=== PATIENT | female | born 1990 | race American Indian/Alaskan Native ===

== ENCOUNTER 2017-03-06 16:30 | Inpatient (IN) | payer MEDICAID ==
[2017-03-06] MEDS ORDERED: LACTATED RINGERS 500 ML IV ONE (17:16)
[2017-03-06 19:33] LABS: Basophils % (Auto) 0.3 % (0.0-1.8); Eosinophils % (Auto) 0.8 % (0.0-4.3); Hemoglobin 11.3 gm/dl (10.1-14.3); Mean Corpuscular HGB Conc 33 % (30-34); Mean Corpuscular Hemoglobin 31 pg (28-32); Mean Corpuscular Volume 92 fl (79-97); Platelet Count 267 K/mm3 (140-440); Red Blood Count 3.71 M/mm3 (3.65-5.03); Red Cell Distribution Width 13.9 % (13.2-15.2); White Blood Count 11.8 K/mm3 (4.5-11.0)
[2017-03-06 20:39] LABS: Bacteria,Urine 1+ /HPF (Negative); Bilirubin,Urine NEG (Negative); Blood,Urine NEG (Negative); Ketones,Urine 20 mg/dL (Negative); Leukocyte Esterase,Urine LG (Negative); Mucus,Urine FEW /HPF; Nitrite,Urine NEG (Negative)
[2017-03-06] MEDS ORDERED: COLACE PO PRN (20:57)
[2017-03-06] MEDS ORDERED: TYLENOL PO PRN (20:57)
--- NOTE | 2017-03-06 21:04 | History and Physical Report ---
History of Present Illness Date of examination: 03/06/17 Date of admission: 03/06/2017 Chief complaint: leakage of fluid History of present illness: 26y/o @ 32+6 weeks presents with leakage of fluid. She denied any painful contractions. The patient has not had care during this . She reports having bleeding in December and assumed that her was not advanced. She has a history of 3 prior deliveries and has had a placement of cerclages during those pregnancies. She has had one child to of SIDs at 1.5y/o. The patient reports having a "heart attack" after one of her deliveries but states she was cleared by cardiology. She is a poor historian. Past History Past Medical History: no pertinent history Past Surgical History: no surgical history Social history: single - Obstetrical History Expected Date of Delivery: 04/26/17 Actual Gestation: 32 Week(s) 6 Day(s) : 8 Para: 5 Hx # Term Pregnancies: 3 Number of Pregnancies: 3 Spontaneous Abortions: 1 Induced : 0 Number of Living Children: 5 (1y/o of SIDS) Medications and Allergies Allergies Allergy/AdvReac Type Severity Reaction Status Date / Time No Known Allergies Allergy Verified 03/06/17 17:16 Home Medications Medication Instructions Recorded Confirmed Last Taken Type Multivitamin with Iron 1 each PO DAILY #30 tablet 04/02/16 03/07/17 2 Days Ago Rx [Multivitamins with Iron] Active Meds: Active Medications Acetaminophen (Tylenol) 650 mg PO Q4H PRN PRN Reason: Pain MILD(1-3)/Fever >100.5/SNEED Amoxicillin (Trimox) 250 mg PO Q8HR MATTHEW PRN Reason: Protocol Stop: 03/13/17 20:58 Betamethasone Acet/Betameth SodPhos (Celestone Soluspan) 12 mg IM Q24HR MATTHEW Stop: 03/07/17 10:01 Docusate Sodium (Colace) 100 mg PO Q12H PRN PRN Reason: Constipation Erythromycin (Richard-Tab) 250 mg PO Q8HR MATTHEW PRN Reason: Protocol Stop: 03/13/17 20:58 Ampicillin Sodium (Polycillin/Ns 2 Gm/100 Ml) 2 gm in 100 mls @ 100 mls/hr IV Q6HR MATTHEW PRN Reason: Protocol Stop: 03/08/17 12:59 Erythromycin Lactobionate 250 (mg/ Sodium Chloride) 100 mls @ 100 mls/hr IV Q6HR MATTHEW PRN Reason: Protocol Stop: 03/08/17 12:59 Lactated Ringer's (Lactated Ringers) 1,000 mls @ 125 mls/hr IV DIRECT MATTHEW Multivitamins/Iron/Calcium ( Vitamin) 1 each PO QDAY MATTHEW Review of Systems All systems: negative Genitourinary: leakage of fluid - Vital Signs Vital signs: Vital Signs Temp Resp Pulse Ox 98.7 F 16 99 03/06/17 17:00 03/06/17 17:00 03/06/17 17:00 Temp Pulse Resp BP Pulse Ox 98.7 F 108 H 16 99/65 82 L 03/06/17 17:00 03/06/17 21:00 03/06/17 17:00 03/06/17 17:35 03/06/17 21:00 - Physical Exam Breasts: Positive: deferred Cardiovascular: Regular rate Lungs: Positive: Clear to auscultation Abdomen: Positive: normal appearance, soft - Obstetrical Cervical Dilatation: 4 (per nursing report) Results Result Diagrams: 03/06/17 19:26 Abnormal lab results 03/06/17 03/06/17 Range/Units 19:26 20:05 WBC 11.8 H (4.5-11.0) K/mm3 Seg Neutrophils # 8.2 H (1.8-7.7) K/mm3 Urine WBC (Auto) 142.0 H (0.0-6.0) /HPF U Epithel Cells (Auto) 18.0 H (0-13.0) /HPF All other labs normal. Assessment and Plan - Patient Problems (1) Insufficient care Current Visit: Yes Status: Acute Qualifiers: Trimester: T Plan to address problem: initiate steroids and antibiotics expectant management ultrasound consistent with 32+6 weeks vertex presentation (2) premature rupture of membranes Current Visit: Yes Status: Acute Qualifiers: PROM onset of labor timing: P
[2017-03-06] MEDS: CELESTONE SOLUSPAN IM SCH (22:33)
[2017-03-06] MEDS: LACTATED RINGERS 1,000 ML IV SCH (22:34)
[2017-03-06 22:35] LABS: HIV-1 Antigen p24 Non React (Non React); HIVR-1/2 Ab Non React (Non React)
[2017-03-06] MEDS: POLYCILLIN/NS 2 GM/100 ML 2 GM/100 ML BAG IV SCH (22:35)
[2017-03-06] MEDS: ERYTHROMYCIN LACTOBIONATE 250 MG in NACL 0.9% 100 ML IV SCH (23:52)
[2017-03-07 00:21] LABS: Urine Drugs of Abuse Note Disclamer
[2017-03-07] MEDS: POLYCILLIN/NS 2 GM/100 ML 2 GM/100 ML BAG IV SCH ×5 (04:54→23:35)
[2017-03-07] MEDS: ERYTHROMYCIN LACTOBIONATE 250 MG in NACL 0.9% 100 ML IV SCH ×5 (06:04→19:50)
--- NOTE | 2017-03-07 08:01 | Admit Criteria Form ---
Admission Criteria Documentation: OBSTETRIC AND GYNECOLOGIC DISEASE GRG Clinical Indications for Admission to Inpatient Care (Place 'X' for any and all applicable criteria): Hospital admission is needed for appropriate care of the patient because of 1 or more of the following (1)(2)(3): [ ]I. Hemodynamic instability, as indicated by 1 or more of the following (1)( 2)(3)(4)(5): [ ]a) Vital signs or other findings not as expected for chronic patient condition or baseline [ ]b) Instability indicated by 1 or more of the following: [ ]i) Hypotension [ ]ii) Symptomatic tachycardia unresponsive to treatment (eg, analgesia, fluids, sedation as indicated) [ ]iii) Inadequate perfusion indicated by 1 or more of the following: [ ]A. Lactic acidosis (greater than 2 mmol/ L) [ ]B. New abnormal capillary refill ( greater than 3 seconds) [ ]C. Reduced urine output [ ]D. New altered mental status [ ]iv) Orthostatic vital sign changes unresponsive to treatment (eg, fluids) [ ]v) Multiple IV fluid boluses required to maintain adequate blood pressure or perfusion [ ]vi) IV inotropic or vasopressor medication required to maintain adequate blood pressure or perfusion [ ]II. Obstetric infection requiring hospitalization indicated by 1 or more of the following(13)(14): [ ]a) Chorioamnionitis [ ]b) Endometritis (except mild endometritis) [ ]c) Pelvic abscess [ ]d) Peritonitis [ ]e) Septic pelvic thrombophlebitis [ ]III. Amniotic fluid or pulmonary embolism(4)(5)(6) [ ]IV. Suspected peritonitis or ectopic requiring monitoring beyond scope of 24 hours or observation care(7)(8) [ ]V. compromise requiring hospitalization indicated by ALL of the following(9)(10): [ ]a) compromise indicated by 1 or more of the following(11): [ ]i) Abnormal heart rate monitoring [ ]ii) Abnormal contraction stress test [ ]iii) Abnormal biophysical profile [ ]iv) Abnormal Doppler flow in vessels (ie, Doppler velocimetry) (12) [ ]b) Persistence of compromise indicators during evaluation and observation monitoring [ ]. Ovarian hyperstimulation syndrome requiring hospitalization[A] indicated by ALL of the following(15): [ ]a) Recent ovarian stimulation with gonadotropins, or evidence on ultrasound of spontaneous emergence of large number of ovarian follicles [ ]b) Evidence of severe ovarian hyperstimulation syndrome indicated by 1 or more of the following: [ ]i) Abdominal pain unresponsive to oral therapy [ ]ii) Acute respiratory distress syndrome [ ]iii) Electrolyte imbalance ( eg, hyponatremia, hyperkalemia) [ ]iv) Elevated liver enzymes [ ]v) Evidence of thromboembolism [ ]vi) Hemoconcentration (hematocrit greater than 45 % (0.45)) [ ]vii) Inability to maintain oral intake adequate to prevent hemoconcentration [ ]viii) Marked hypotension from baseline (eg, SBP 20 mmHg below patients usual pressure) [ ]ix) Oliguria or anuria [ ]x) Ovarian torsion [ ]xi) Pleural or pericardial effusion on x-ray or echocardiogram [ ]xii) Rapid increase in serum creatinine to greater than 1.2 mg/dL (106 micromoles/L) or creatinine clearance less than 50 mL/min/1.73m2 (0.84 mL/ sec/1.73m2) [ ]xiii) Ruptured ovarian cyst with hemorrhage [ ]xiv) Severe abdominal pain or peritoneal signs [ ]xv) Tense ascites that cannot be managed with paracentesis in outpatient setting [ ]VII.Pelvic infection requiring hospitalization indicated by 1 or more of the following (16): [ ]a) Outpatient treatment has failed or is not appropriate (eg, inpatient monitoring required) [ ]b) Pelvic abscess [ ]c) Surgical emergency cannot be excluded (eg, rigid abdomen) [ ]d) Vomiting precluding outpatient and observation care management VIII. loss complications requiring inpatient medical treatment indicated by 1 or more of the following (4)(7)(9): [ ]a) Fever [ ]b) Peritonitis [ ]c) Sepsis [ ]d) Severe abdominal pain [ ]IX. or patient requiring monitoring for severe heart failure, pulmonary disease, or other comorbid condition (eg, peripartum cardiomyopathy) (4)(17) [X]X. patient with rupture of membranes requiring hospitalization indicated by ANY ONE of the following: [ ]a) Chorioamnionitis, cloudy amniotic fluid, or other evidence of infection [X]b) compromise or other need for monitoring (11) [ ]c) Gestation longer than 23 weeks and ANY ONE of the following: [ ]i) Abnormal (noncephalic) presentation [ ]ii) Inadequate home environment (eg, home too far from hospital, unable to rapidly return to hospital) [ ]d) Temperature greater than 100.4 degrees F (38 degrees C)( oral) [ ]e) Threatened labor requiring monitoring beyond scope (eg, over 24 hours) of observation Care [ ] XI. complications, including severe lacerations, infections, or retained placenta (19) [ ] XII.Uterine bleeding with high-risk features indicated by ANY ONE of the following (4): [ ]a) Active major hemorrhage (eg, hemorrhage) [ ]b) Coagulopathy with active bleeding [ ]c) Gestational trophoblastic disease (eg, molar ) (20 ) [ ]d) (longer than 23 weeks) and ANY ONE of the following: [ ]i) Pain [ ]ii) Placental abruption, known or suspected [ ]iii) Placenta accrete, known or suspected(21) [ ]iv) Placenta previa, known or suspected [ ]v) Vasa previa [ ]e) Severe anemia [ ]XIII. Obstetric or Gynecologic Disease, condition or symptom for which ANY ONE of the following: [ ]a) Emergency and observation care have failed or are not considered appropriate ( Also use General Criteria: Observation Care Criteria as appropriate) [ ]b) Presence of a General Admission Criteria or Pediatric General Admission Criteria The original [facility] content [facility] by [facility] has been revised. The portions of the content which have been revised are identified through the use of italic text or in bold, and [facility] has neither reviewed nor approved the modified material.All other unmodified content is copyright [facility]. Please see references footnoted in the original [facility] edition 2016 Admission Criteria Met: Yes
--- NOTE | 2017-03-07 08:30 | Ultrasound Report ---
COMPLETE OB ULTRASOUND: Gestation: matson Position: cephalic LIZETT = 2.9 cm normal 7-24 oligohydramnios Placenta: fundal,ant-post Placental Grade: 0 Heart Rate: 139 BPM ANATOMY VISUALIZED: Stomach Kidneys Bladder 4 Chamber Heart Heart 3 Vessel Cord The following are not demonstrated due to maternal body habitus or lie: head,spine,cx,CI BPD: 8.2 cm = 33 w 0 d HC: 29.5 cm = 32 w 4 d AC: 28.4 cm = 32 w 3 d FL: 6.35 cm = 32 w 6 d HC/AC Ratio: 1.04 Cephalic Index: 85.0 Estimated Weight: 2012 grams US Gest. Age = 32 w 5 d EDC: 04/26/17
[2017-03-07] MEDS: PRENATAL VITAMIN PO SCH (10:53)
[2017-03-07] MEDS: LACTATED RINGERS 1,000 ML IV SCH (10:59)
[2017-03-07] MEDS: CELESTONE SOLUSPAN IM SCH (22:41)
[2017-03-07] MEDS: AMBIEN PO PRN (23:43)
[2017-03-08] MEDS: ERYTHROMYCIN LACTOBIONATE 250 MG in NACL 0.9% 100 ML IV SCH ×3 (02:24→16:00)
[2017-03-08] MEDS: LACTATED RINGERS 1,000 ML IV SCH ×3 (02:52→23:21)
[2017-03-08] MEDS: POLYCILLIN/NS 2 GM/100 ML 2 GM/100 ML BAG IV SCH ×2 (05:48→11:10)
--- NOTE | 2017-03-08 09:21 | Progress Note ---
Assessment and Plan A: IUP at 33 wks PPROM Advanced cervical dilation Bilateral calf pain No care H/o 3 deliveries and 3 cerclages P: Continue latency antibiotics Bilateral venous dopplers to evaluate for DVT Monitor for signs of chorioamnionitis Closely monitor maternal and status Subjective - Subjective Date of service: 03/08/17 Principal diagnosis: IUP at 33 wks, PPROM, no care Interval history: Overnight no acute events. Pt would like meds for her allergies. C/o bilateral calf pain x 5 days Patient reports: loss of fluid, movement normal, contractions (irregular) , no new complaints, no vaginal bleeding Objective - Vital Signs Vital Signs: Vital Signs - 12hr 03/07/17 03/07/17 03/07/17 22:15 23:45 23:49 Temperature 98.7 F 98.2 F Pulse Rate 80 Pulse Rate [ From Monitor] Respiratory 20 Rate Blood Pressure 89/49 Blood Pressure [Left Arm] O2 Sat by Pulse Oximetry 03/08/17 03/08/17 03/08/17 01:53 03:35 03:38 Temperature 98.1 F Pulse Rate 69 73 Pulse Rate [ From Monitor] Respiratory Rate Blood Pressure 88/51 Blood Pressure [Left Arm] O2 Sat by Pulse 97 Oximetry 03/08/17 03/08/17 03/08/17 03:47 05:05 08:08 Temperature 98.0 F 98.3 F Pulse Rate 85 Pulse Rate [ From Monitor] Respiratory 20 Rate Blood Pressure 105/53 Blood Pressure [Left Arm] O2 Sat by Pulse 100 Oximetry 03/08/17 08:10 Temperature 97.3 F L Pulse Rate Pulse Rate [ 84 From Monitor] Respiratory 18 Rate Blood Pressure Blood Pressure 105/53 [Left Arm] O2 Sat by Pulse 98 Oximetry - Exam Breasts: deferred Cardiovascular: Regular rate Lungs: Clear to auscultation Abdomen: Present: soft (gravid ). Absent: tenderness Uterus: Present: normal (gravid ) FHR: auscultation normal Uterine Contraction Monitor Mode: External Uterine Contraction Pattern: Irregular Uterine Tone Measurement Phase: Resting Uterine Contraction Intensity: Mild Extremities: tenderness (bilateral calf tenderness) - Labs Labs: Abnormal Labs 03/06/17 03/06/17 19:26 20:05 WBC 11.8 H Seg Neutrophils # 8.2 H Urine WBC (Auto) 142.0 H U Epithel Cells (Auto) 18.0 H Laboratory Results - last 24 hr 03/06/17 21:50 RPR Nonreactive
[2017-03-08] MEDS: PRENATAL VITAMIN PO SCH (10:21)
[2017-03-08] MEDS: DEEP SEA NS SCH (10:22)
[2017-03-08] MEDS: CLARITIN PO SCH (11:17)
[2017-03-08] MEDS: TRIMOX PO SCH (23:16)
[2017-03-08] MEDS: ERY-TAB PO SCH (23:16)
[2017-03-08] MEDS: AMBIEN PO PRN (23:17)
[2017-03-09] MEDS: TRIMOX PO SCH ×3 (06:43→21:54)
[2017-03-09] MEDS: ERY-TAB PO SCH ×3 (06:44→21:54)
[2017-03-09] MEDS: LACTATED RINGERS 1,000 ML IV SCH ×2 (06:44→19:15)
--- NOTE | 2017-03-09 06:54 | Vascular Lab Report ---
LOWER EXTREMITY VENOUS DUPLEX: REASON FOR EXAM: Bilateral calf tenderness. COMMENTS ON THE RIGHT: All veins visualized are freely compressible without evidence of internal echogenicity. Flow is spontaneous and phasic throughout. COMMENTS ON THE LEFT: All veins visualized are freely compressible without evidence of internal echogenicity. Flow is spontaneous and phasic throughout. IMPRESSION: No evidence of acute or chronic deep venous thrombosis in either lower extremity.
[2017-03-09] MEDS: PRENATAL VITAMIN PO SCH (09:47)
[2017-03-09] MEDS: CLARITIN PO SCH (09:48)
[2017-03-09] MEDS: DEEP SEA NS SCH ×6 (09:48→22:00)
--- NOTE | 2017-03-09 13:54 | Ultrasound Report ---
ULTRASOUND OB LIMITED History: Premature rupture of membranes Technique: Transabdominal ultrasound with Doppler interrogation. Gestation: Single Position: Cephalic Amniotic Fluid: Decreased LIZETT = 6.9 cm Heart Rate: 140 BPM
--- NOTE | 2017-03-09 13:55 | Ultrasound Report ---
ULTRASOUND BIOPHYSICAL PROFILE: History: Premature rupture of membranes Technique: Transabdominal ultrasound with Doppler interrogation. 2 - breathing movements 2 - movements 2 - posture and tone 2 - Qualitative amniotic fluid volume 8 - TOTAL SCORE OF POSSIBLE 8 Heart Rate (bpm) 141
--- NOTE | 2017-03-09 15:36 | Progress Note ---
Assessment and Plan IUP at 33 wks PPROM Advanced cervical dilatiion No care H/o 3 deliveries and 3 cerclages P: Continue latency antibiotics ( orals) DVT was neg Monitor for signs of chorioamnionitis Closely monitor maternal and status reassurance BPP 8/8 vertex intermittent monitoring Subjective - Subjective Date of service: 03/09/17 Principal diagnosis: IUP at 33 wks, PPROM, no care Patient reports: loss of fluid, movement normal, contractions (irregular) , no new complaints, no vaginal bleeding Objective - Vital Signs Vital Signs: Vital Signs - 12hr 03/09/17 03/09/17 03/09/17 06:34 06:36 06:37 Temperature 98.1 F Pulse Rate 65 53 L 50 L Pulse Rate [ 53 L From Monitor] Respiratory 18 Rate Blood Pressure 83/45 83/48 90/51 Blood Pressure 90/51 [Left Arm] O2 Sat by Pulse Oximetry 03/09/17 03/09/17 03/09/17 09:31 09:33 11:54 Temperature 97.6 F Pulse Rate 86 29 L Pulse Rate [ 80 From Monitor] Respiratory 18 Rate Blood Pressure 88/50 Blood Pressure 88/50 [Left Arm] O2 Sat by Pulse 99 97 0 L Oximetry 03/09/17 03/09/17 11:55 11:57 Temperature 97.9 F Pulse Rate 65 Pulse Rate [ 65 From Monitor] Respiratory 18 Rate Blood Pressure 84/46 Blood Pressure 84/46 [Left Arm] O2 Sat by Pulse 97 96 Oximetry - Exam Breasts: normal Cardiovascular: Regular rate, Normal S1, Normal S2 Lungs: Clear to auscultation, Normal air movement Abdomen: Present: normal appearance, soft. Absent: distention, tenderness, normal bowel sounds Vulva: both: normal Uterus: Present: normal FHR: auscultation normal, category 1 - Labs Labs: Abnormal Labs 03/06/17 03/06/17 19:26 20:05 WBC 11.8 H Seg Neutrophils # 8.2 H Urine WBC (Auto) 142.0 H U Epithel Cells (Auto) 18.0 H
[2017-03-09] MEDS: AMBIEN PO PRN (21:58)
[2017-03-10] MEDS: LACTATED RINGERS 1,000 ML IV SCH ×2 (03:23→13:38)
[2017-03-10] MEDS: TRIMOX PO SCH ×3 (06:15→22:11)
[2017-03-10] MEDS: ERY-TAB PO SCH ×3 (06:15→22:12)
[2017-03-10] MEDS: CLARITIN PO SCH (14:23)
[2017-03-10] MEDS: PRENATAL VITAMIN PO SCH (14:23)
--- NOTE | 2017-03-10 16:22 | Progress Note ---
Assessment and Plan IUP @33.2 weeks with pprom. Continue routine management with plan to induce at 34 weeks. Subjective - Subjective Date of service: 03/10/17 Principal diagnosis: IUP at 33 wks, PPROM, no care Interval history: overnight patient reported seeing some meconium mixed in with the amniotic fluid. She denies contractions Patient reports: loss of fluid, movement normal, contractions (irregular) , no new complaints, no vaginal bleeding Objective - Vital Signs Vital Signs: Vital Signs - 12hr 03/10/17 03/10/17 03/10/17 04:34 04:35 04:36 Temperature Pulse Rate 75 75 79 Respiratory Rate Blood Pressure 86/50 88/55 O2 Sat by Pulse 97 Oximetry 03/10/17 03/10/17 03/10/17 04:38 04:41 04:42 Temperature 98.4 F Pulse Rate 82 65 Respiratory 18 Rate Blood Pressure O2 Sat by Pulse 94 94 Oximetry 03/10/17 03/10/17 03/10/17 04:43 04:46 04:49 Temperature Pulse Rate 71 70 65 Respiratory Rate Blood Pressure O2 Sat by Pulse 94 94 94 Oximetry 03/10/17 03/10/17 03/10/17 04:51 04:55 04:56 Temperature Pulse Rate 64 70 69 Respiratory Rate Blood Pressure 90/55 O2 Sat by Pulse 95 94 95 Oximetry 03/10/17 03/10/17 03/10/17 05:01 05:06 05:11 Temperature Pulse Rate 70 67 71 Respiratory Rate Blood Pressure 93/53 O2 Sat by Pulse 94 94 94 Oximetry 03/10/17 03/10/17 03/10/17 05:16 05:19 05:20 Temperature Pulse Rate 80 82 68 Respiratory Rate Blood Pressure 89/53 O2 Sat by Pulse 96 94 Oximetry 03/10/17 03/10/17 03/10/17 05:21 05:37 05:42 Temperature Pulse Rate 72 75 74 Respiratory Rate Blood Pressure 97/56 O2 Sat by Pulse 94 98 97 Oximetry 03/10/17 03/10/17 03/10/17 05:47 05:51 05:52 Temperature Pulse Rate 69 68 68 Respiratory Rate Blood Pressure 97/54 O2 Sat by Pulse 98 97 Oximetry 03/10/17 03/10/17 03/10/17 05:57 06:02 06:06 Temperature Pulse Rate 61 65 75 Respiratory Rate Blood Pressure 88/51 O2 Sat by Pulse 97 97 Oximetry 03/10/17 03/10/17 03/10/17 06:07 06:12 06:17 Temperature Pulse Rate 64 63 64 Respiratory Rate Blood Pressure O2 Sat by Pulse 97 97 98 Oximetry 03/10/17 03/10/17 03/10/17 06:22 06:27 06:32 Temperature Pulse Rate 64 73 59 L Respiratory Rate Blood Pressure O2 Sat by Pulse 99 96 97 Oximetry 03/10/17 03/10/17 03/10/17 06:37 06:42 07:37 Temperature 98.2 F Pulse Rate 67 80 65 Respiratory 18 Rate Blood Pressure 90/53 O2 Sat by Pulse 98 96 Oximetry 03/10/17 03/10/17 03/10/17 10:00 12:00 12:14 Temperature 98.1 F 98.2 F Pulse Rate 77 Respiratory Rate Blood Pressure 93/54 O2 Sat by Pulse Oximetry 03/10/17 14:00 Temperature 98.5 F Pulse Rate Respiratory 18 Rate Blood Pressure O2 Sat by Pulse Oximetry - Exam Cardiovascular: Regular rate, Normal S1 Lungs: Clear to auscultation, Normal air movement Abdomen: Present: normal appearance, soft (non tender) Uterus: Present: normal, firm - Labs Labs: Abnormal Labs 03/06/17 03/06/17 19:26 20:05 WBC 11.8 H Seg Neutrophils # 8.2 H Urine WBC (Auto) 142.0 H U Epithel Cells (Auto) 18.0 H
[2017-03-10] MEDS ORDERED: TUCKS PAD TP PRN (17:52)
[2017-03-11] MEDS: AMBIEN PO PRN (01:24)
[2017-03-11] MEDS: LACTATED RINGERS 1,000 ML IV SCH (02:41)
[2017-03-11] MEDS: TRIMOX PO SCH ×2 (06:44→14:01)
[2017-03-11] MEDS: ERY-TAB PO SCH ×2 (06:45→14:01)
[2017-03-11] MEDS: CLARITIN PO SCH (10:35)
[2017-03-11] MEDS: PRENATAL VITAMIN PO SCH (10:35)
--- NOTE | 2017-03-11 11:59 | Progress Note ---
Assessment and Plan PPROM IUP at 33.4 weeks. Will check LIZETT today. If levels are above 5, patient may have wheelchair ride. No signs of chorio. Subjective - Subjective Principal diagnosis: IUP at 33 wks, PPROM, no care Interval history: overnight patient reported seeing some meconium mixed in with the amniotic fluid. She denies contractions Patient reports: loss of fluid, movement normal, contractions (irregular) , no new complaints, no vaginal bleeding Objective - Vital Signs Vital Signs: Vital Signs - 12hr 03/11/17 03/11/17 03/11/17 00:00 02:30 04:30 Temperature 98.4 F 97.6 F 98.7 F Pulse Rate Respiratory 16 16 18 Rate Blood Pressure 03/11/17 03/11/17 03/11/17 06:15 06:45 11:34 Temperature 98.1 F Pulse Rate 88 88 Respiratory 20 Rate Blood Pressure 87/48 85/50 - Labs Labs: Abnormal Labs 03/06/17 03/06/17 19:26 20:05 WBC 11.8 H Seg Neutrophils # 8.2 H Urine WBC (Auto) 142.0 H U Epithel Cells (Auto) 18.0 H Laboratory Results - last 24 hr 03/06/17 21:56 Hep Bs Antigen Nonreactive
[2017-03-11] MEDS ORDERED: PITOCin/NS 20 UNIT/1000ML DRIP 20,000 MILLIUNITS/1,000 ML BAG IV ONE (16:15)
--- NOTE | 2017-03-11 16:39 | Procedure Note ---
OB Delivery Note - Delivery Date of Delivery: 03/11/17 (1612) Surgeon: RACHANA RYAN Estimated blood loss: 100cc - Vaginal Delivery presentation: vertex Delivery position: OA Intrapartum events: no care, labor-<37 weeks, PROM->1hr before delivery, decreased FHT variability Delivery induction: none Delivery monitor: external FHT, external uterine Route of delivery: Delivery placenta: spontaneous Delivery cord: 3 umbilical vessels Delivery laceration: none Anesthesia: none Delivery comments: Baby miguel Jerez was delivered on 03/11/2017 @ 1612 over intact perineum. PPROM since 03/06/2017 with no care. Vigorous cry at perineum so delayed cord clamping x 1.5 minutes was completed prior to cord being clamped and cut by FOB and then passed to awaiting NICU team for assessment. Cord blood collected. Placenta delivered gross side presenting. Fundus is firm, midline and 3 cm below umbilicus. weighed 4lb 10 oz and apgars were 8/9. EBL 100cc. - Infant A at 1 minute: 8 at 5 minutes: 9 Gender: Female
--- NOTE | 2017-03-11 17:13 | Event Note ---
Date: 03/11/17 Received call from nursing staff at 3:40 pm stating that patient was having contractions. Nurse requested to check patient. She called back at 3:57 stating that the patient was still 4-5cm. A second call was received at 4:10 stating that the patient was delivering. Amita Dye CNM, was in attendance.
[2017-03-11] MEDS ORDERED: SODIUM CHLORIDE FLUSH SYRINGE 10 ML IV SCH (18:53)
[2017-03-11] MEDS ORDERED: BENADRYL PO PRN (18:53)
[2017-03-11] MEDS ORDERED: TUCKS PAD TP PRN (18:53)
[2017-03-11] MEDS ORDERED: MILK OF MAGNESIA PO PRN (18:53)
[2017-03-11] MEDS ORDERED: ZOFRAN IV PRN (18:53)
[2017-03-11] MEDS ORDERED: PHENERGAN PR PRN (18:53)
[2017-03-11] MEDS ORDERED: LANSINOH TP PRN (18:53)
[2017-03-11] MEDS ORDERED: DULCOLAX PR PRN (18:53)
[2017-03-11] MEDS ORDERED: DERMOPLAST TP PRN (18:53)
[2017-03-11] MEDS ORDERED: NORCO 5/325 PO PRN (18:53)
[2017-03-11] MEDS ORDERED: TYLENOL PO PRN (18:53)
[2017-03-11] MEDS ORDERED: PHENERGAN PO PRN (18:53)
[2017-03-11 19:25] LABS: Hematocrit 26.1 % (30.3-42.9); Hemoglobin 8.8 gm/dl (10.1-14.3); Mean Corpuscular HGB Conc 34 % (30-34); Mean Corpuscular Hemoglobin 32 pg (28-32); Mean Corpuscular Volume 94 fl (79-97); Platelet Count 206 K/mm3 (140-440); Red Blood Count 2.79 M/mm3 (3.65-5.03); Red Cell Distribution Width 14.6 % (13.2-15.2); White Blood Count 16.3 K/mm3 (4.5-11.0)
[2017-03-11] MEDS: MOTRIN PO SCH (21:44)
[2017-03-11] MEDS: COLACE PO SCH (22:00)
--- NOTE | 2017-03-12 07:50 | Ultrasound Report ---
Gestation: Single Position: Cephalic Amniotic Fluid: LIZETT = 5.9 cm Placenta: Placental Grade: Heart Rate: 156 BPM The
--- NOTE | 2017-03-12 08:19 | Progress Note ---
Assessment and Plan A: PPD#1 s/p at 33w3d after PPROM, no care, h/o incompetent cervix with 3 cerclages P: Plan to discharge home tomorrow with follow up in 2 week to begin tubal ligation planning. Subjective - Subjective Date of service: 03/12/17 Principal diagnosis: IUP at 33 wks, PPROM, no care, delivery Interval history: Pt feels well after delivery. She reports ankle edema since the delivery. Patient reports: appetite normal, pain well controlled, ambulating normally, no nauseated [place]: in NICU Objective - Vital Signs Latest vital signs: Vital Signs Temp Pulse Pulse Resp BP BP 03/12/17 00:00 98.4 F 54 L 18 100/54 03/11/17 20:35 98.2 F 68 20 116/63 03/11/17 17:50 98.4 F 74 20 110/60 03/11/17 17:23 65 107/58 03/11/17 17:09 71 111/58 03/11/17 16:53 81 100/59 03/11/17 16:38 76 104/62 03/11/17 16:23 90 113/69 03/11/17 14:05 93 H 96/54 03/11/17 12:11 97.8 F 16 03/11/17 11:34 88 85/50 Intake and Output 03/11/17 03/12/17 03/12/17 22:59 06:59 14:59 Intake Total 240 120 Output Total 600 400 Balance -360 -280 Intake: Oral 240 120 Output: Urine 600 400 Void 600 400 Other: Total, Intake Amount 240 120 Total, Output Amount 600 400 # Voids Void 1 1 Estimated Blood Loss 100 - Exam Breasts: Present: deferred Cardiovascular: Present: Regular rate Lungs: Present: Clear to auscultation Abdomen: Present: soft Uterus: Present: fundal height below umbilicus Extremities: Present: edema (ankle, pedal ) - Labs Labs: Abnormal lab results 03/11/17 Range/Units 19:05 WBC 16.3 H (4.5-11.0) K/mm3 RBC 2.79 L (3.65-5.03) M/mm3 Hgb 8.8 L (10.1-14.3) gm/dl Hct 26.1 L (30.3-42.9) %
--- NOTE | 2017-03-12 08:23 | Discharge Summary ---
Providers - Providers Date of Admission: 03/06/17 21:05 Date of discharge: 03/13/17 Attending physician: GINGER ORTEGA Primary care physician: PRODUCTION HAND Hospitalization Reason for admission: rupture of membranes Delivery: Procedure details: Please see delivery note. Episiotomy: none Laceration: none Other procedures: none complications: none Discharge diagnosis: delivery [place] baby: female Hospital course: Patient was initially admitted with premature rupture of membranes. She was started on latency orthotics and given sterile rates for lung maturity. She remained until 03/11/2017 when she delivered a viable Female . Her course uncomplicated and she met discharge criteria on postoperative day #2. She will follow-up in the office in 2 weeks. Condition at discharge: Stable Disposition: DISCHARGED TO HOME OR SELFCARE - Discharge Diagnoses (1) delivery Status: Acute (2) Anemia affecting Status: Acute Qualifiers: Trimester: T (3) Insufficient care Status: Acute Qualifiers: Trimester: T (4) premature rupture of membranes Status: Acute Qualifiers: PROM onset of labor timing: P (5) Grand multipara Status: Acute (6) (normal spontaneous vaginal delivery) Status: Acute Plan - Discharge Medications Prescriptions: Ferrous Sulfate [Feosol 325 MG tab] 325 mg PO BID #60 tablet HYDROcodone/APAP 5-325 [Lynn 5/325] 1 each PO Q6HR PRN #30 tablet PRN Reason: Pain Ibuprofen [Motrin] 800 mg PO Q8HR PRN #30 tablet PRN Reason: Pain Vit-Fe Fumar-FA [ Vitamin] 1 tab PO QDAY #30 tablet - Provider Discharge Summary Activity: routine, no sex for 6 weeks, no heavy lifting 4 weeks, no strenuous exercise Diet: routine Instructions: routine Additional instructions: [] Smoking cessation referral if applicable(refer to patient education folder for contact #) [] Refer to [facility] Booklet Call your doctor immediately for: * Fever > 100.5 * Heavy vaginal bleeding ( >1 pad per hour) * Severe persistent headache * Shortness of breath * Reddened, hot, painful area to leg or breast * Drainage or odor from incision. * Keep incision clean and dry at all times and follow doctor's instructions regarding bathing/showering - Follow up plan Follow up: SKYLAR LEDESMA MD [Staff Physician] - 03/26/17 ( follow up )
[2017-03-12] MEDS ORDERED: FLUARIX QUAD 2016-2017(36 MOS+) IM ONE (12:00)
[2017-03-12] MEDS ORDERED: BOOSTRIX IM ONE (12:00)
[2017-03-12] MEDS: MOTRIN PO SCH ×3 (13:24→16:33)
[2017-03-12] MEDS: COLACE PO SCH (13:24)
[2017-03-12] MEDS: PRENATAL VITAMIN PO SCH (13:24)
[2017-03-13] MEDS: COLACE PO SCH (05:07)
[2017-03-13] MEDS ORDERED: BOOSTRIX IM ONE (06:00)
[2017-03-13] MEDS: PRENATAL VITAMIN PO SCH (11:59)
[2017-03-13] MEDS: MOTRIN PO SCH (11:59)
[2017-03-13 15:59] VITALS: BP 94/68
== END 2017-03-13 16:40 | disposition home or self-care (01) | DRG 775 ==
LOC: TRG 16:30 → LD 21:05 → OBSVTOIN 21:05 → OB 03-11 17:49
PROVIDERS: ADMIT Obstetrics & Gynecology; ATTEND Obstetrics & Gynecology
PROC: 10E0XZZ Delivery of Products of Conception, External Approach (ICD-10-PCS; principal; 2017-03-11)
DX: O42.013 Preterm premature rupture of membranes, onset of labor within 24 hours of rupture, third trimester (principal); O60.14X0 Preterm labor third trimester with preterm delivery third trimester, not applicable or unspecified; O99.02 Anemia complicating childbirth; O62.0 Primary inadequate contractions; Z3A.32 32 weeks gestation of pregnancy; O09.33 Supervision of pregnancy with insufficient antenatal care, third trimester; Z87.51 Personal history of pre-term labor; O09.43 Supervision of pregnancy with grand multiparity, third trimester; Z37.0 Single live birth
CPT/HCPCS: 36415; 76805; 76815; 76819; 80307; 81001; 85025; 85027; 86592; 86706; 86762; 86803; 86850; 86900; 86901; 87806; 88307; 90471; 90686; 90715; 93970; 99211; G0008; G0463; J0290; J0702; J1364; J2590; J7120